=== PATIENT | male | born 1940 | race Two or more races ===

== ENCOUNTER 2024-08-14 19:26 | Emergency (ER) | payer OTHER ==
[~2024-08-14] VITALS: Ht 167.6 cm; Wt 78.0 kg
[2024-08-14] MEDS ORDERED: ECOTRIN81 MG PO (19:48)
[2024-08-14] MEDS ORDERED: CELEBREX200MG PO (19:48)
[2024-08-14] MEDS ORDERED: MOBIC7.5 MG (19:49)
[2024-08-14] MEDS ORDERED: METOCLOPRAMIDE10 MG PO (19:49)
[2024-08-14] MEDS ORDERED: LEVO-T50 MCG PO (19:49)
[2024-08-14] MEDS ORDERED: MAGNESIUM250 MG PO (19:49)
[2024-08-14] MEDS ORDERED: SIMVASTATIN5 MG PO (19:50)
[2024-08-14] MEDS ORDERED: ONZETRA XSAIL11 MG NS (19:50)
== END 2024-08-14 22:18 | disposition home or self-care (01) ==
LOC: ER 19:26
DX: S69.81XA Other specified injuries of right wrist, hand and finger(s), initial encounter (principal); W18.39XA Other fall on same level, initial encounter; Y93.89 Activity, other specified; Y92.59 Other trade areas as the place of occurrence of the external cause; S89.82XA Other specified injuries of left lower leg, initial encounter; E78.00 Pure hypercholesterolemia, unspecified; E03.8 Other specified hypothyroidism; I10 Essential (primary) hypertension; M19.031 Primary osteoarthritis, right wrist

== ENCOUNTER 2024-08-17 16:02 | Emergency (ER) | payer OTHER ==
[~2024-08-17] VITALS: Ht 177.8 cm; Wt 90.7 kg
[~2024-08-17 16:02] MED LIST: CELEBREX200MG PO; ECOTRIN81 MG PO; LEVO-T50 MCG PO; MAGNESIUM250 MG PO; METOCLOPRAMIDE10 MG PO; MOBIC7.5 MG; ONZETRA XSAIL11 MG NS; SIMVASTATIN5 MG PO
== END 2024-08-17 18:28 | disposition home or self-care (01) ==
LOC: ER 16:04
DX: S89.82XA Other specified injuries of left lower leg, initial encounter (principal); W19.XXXA Unspecified fall, initial encounter; Y93.89 Activity, other specified; Y92.89 Other specified places as the place of occurrence of the external cause; Y99.8 Other external cause status; M25.50 Pain in unspecified joint